=== PATIENT | female | born 1960 ===

== ENCOUNTER 2022-07-23 13:21 | Outpatient (REF) | payer MEDICAID, SELFPAY | END 2022-07-23 13:22 | disposition home or self-care (01) | LOC: NCHCN 13:21 | PROVIDERS: Visit Provider Nurse Practitioner Family | DX: S01.301A Unspecified open wound of right ear, initial encounter (principal); X58.XXXA Exposure to other specified factors, initial encounter | CPT/HCPCS: 87070; 87205 ==

== ENCOUNTER 2025-03-28 18:49 | Outpatient (REF) | payer MEDICARE, MEDICAID, SELFPAY | END 2025-03-28 18:50 | disposition home or self-care (01) | LOC: NCHCN 18:49 | PROVIDERS: Visit Provider Family Medicine | DX: R30.0 Dysuria (principal) | CPT/HCPCS: 87086 ==